=== PATIENT | female | born 2000 | race Caucasian/White ===

== ENCOUNTER 2022-03-10 14:26 | Emergency (ER) | payer MEDICAID, SELFPAY ==
[2022-03-10] MEDS ORDERED: Acetaminophen 325 MG TAB ONE (14:57)
[2022-03-10] MEDS ORDERED: Ondansetron ODT 4 MG TAB ONE (14:57)
[2022-03-10 15:27] LABS: Bilirubin Negative (Negative); Blood, Urine Moderate (Negative); Glucose, Urine (Dipstick) Negative (Negative); Ketone, Urine Negative (Negative); Leukocyte Negative (Negative); Nitrite Negative (Negative); Protein, Urine (Dipstick) 100 mg/dL (Neg-Trace); Urobilinogen 0.2 mg/dL (Less than 2)
[2022-03-10 15:30] LABS: Pregnancy Test - Urine (BHCG) Negative (Negative)
[2022-03-10 15:31] LABS: Pregu Control Background? CLEAR/WHITE (CLR/WHITE); Pregu Control Bar Appear? YES (CONTROL BAR); Specific Gravity 1.025 (1.002-1.036)
[2022-03-10 15:37] LABS: Clarity Hazy (Clear); Specific Gravity, Urine 1.025 (1.002-1.036)
[2022-03-10 15:38] LABS: Bacteria/HPF 2+ HPF (None Seen)
== END 2022-03-10 16:06 | disposition home or self-care (01) ==
LOC: EEVIPCON 14:26 → MADERS 14:26
DX: B34.9 Viral infection, unspecified (principal)
CPT/HCPCS: 81003; 81015; 81025; 87081; 87430; 87804; 99284; Q0162